=== PATIENT | female | born 1960 | race Caucasian/White ===

== ENCOUNTER 2018-09-22 16:42 | Day surgery (SDC) | payer OTHER ==
[2018-09-20 17:23] VITALS: Ht 172.7 cm; Wt 67.1 kg
[~2018-09-22] VITALS: Ht 172.7 cm; Wt 67.1 kg
[2018-09-22] VITALS (14 sets, daily range): BP systolic 99–118; BP diastolic 58–75; PULSE 74–100; RESP 15–24
[~2018-09-22 16:42] MED LIST: ALPR0.5T PO; ASPI-817 PO; CEFAZOLIN 1 GM INJ ONE; CEFAZOLIN 2 GM/50 ML (PMX) 50 ML IVPB ONE; CITA20TA11 PO; DESFLURANE 15 MIN ONE; GLYCOPYRROLATE 0.4 MG INJ ONE; LACTATED RINGER'S 1,000 ML IV* SCH; LIDOCAINE 2% (SDV) 5 ML INJ ONE; NEOSTIGMINE 10 MG INJ ONE; PROPOFOL 200 MG INJ ONE; ROCURONIUM 50 MG INJ ONE; SUCCINYLCHOLINE CHLORIDE 100 MG/5 ML SYG IV ONE; prempro
[2018-09-22] MEDS ORDERED: VIT D3 PO (17:45)
--- NOTE | 2018-09-22 18:46 | HPN ---
Date/Time of Note Date/Time of Note DATE: 09/22/18 TIME: 18:46 Interval H&P Admission Note Pt. seen H&P reviewed: No system changes YFN SHOEMAKER Sep 22, 2018 18:46
--- NOTE | 2018-09-22 18:54 | PREAC ---
Date/Time of Note Date/Time of Note DATE: 09/22/18 TIME: 18:53 Anesthesia Eval and Record Evaluation Time Pre-Procedure Interview DATE: 09/22/18 TIME: 18:53 Age 58 Sex female NPO: 8 hrs Preoperative diagnosis L hand thumb fracture Planned procedure L thumb arthroplasty Past Medical History Past Medical History: Includes Cardio: Dyslipidemia Surgery & Anesthesia Issues No known issue Meds Anticoagulation: No Beta Elba within 24 hr: No Reason Beta Elba not given: Pt. not on B-Elba Reported Medications [Vit D3] No Conflict Check, 2000 CAP PO DAILY 09/22/18 [prempro] No Conflict Check 09/20/18 Alprazolam* (Xanax*) 0.5 Mg Tab, 0.5 MG PO TID, TAB 09/20/18 Aspirin* (Aspirin* EC) 81 Mg Tablet.dr, 81 MG PO DAILY, TAB 09/20/18 Citalopram Hydrobromide* (Celexa*) 20 Mg Tablet, 20 MG PO DAILY, #30 TAB 09/20/18 Current Medications Lactated Ringer's 1,000 ml @ 0 mls/hr Q0M IV* ; Start 09/22/18 at 07:00 Meds reviewed: Yes Allergies Coded Allergies: No Known Allergy (Unverified , 09/20/18) Allergies Reviewed: Yes Labs/Studies Labs Reviewed: Reviewed by anesthesiologist test: Negative Pre-procedure Exam Last vitals Vital Signs Date Temp Pulse Resp B/P (MAP) Pulse Ox O2 O2 Flow FiO2 Time Delivery Rate 09/22/18 97.5 74 18 112/66 100 Room Air 17:40 (81) Airway: Adequate mouth opening, Adequate thyromental dist Mallampati: Mallampati II Teeth: Normal Lung: Normal Heart: Normal ASA Physical Status ASA physical status: 2 Emergency: None Planned Anesthetic General/MAC: ETT Nerve block: Brachial plexus (left) Pre-operative Attestations Prior to commencing anesthesia and surgery, the patient was re-evaluated, there was verification of: *The patient's identity *The results of appropriate recent lab work and preoperative vital signs *The above evaluation not changing prior to induction *Anesthetic plan, risk benefits, alternative and complications discussed with patient/family; questions answered; patient/family understands, accepts and wishes to proceed. ROE HOPE Sep 22, 2018 18:54
[2018-09-22] MEDS ORDERED: MEPERIDINE 25 MG INJ IV PRN (19:00)
[2018-09-22] MEDS ORDERED: FENTAnyl 50 MCG/ML VIAL IV PRN ×2 (19:00)
[2018-09-22] MEDS ORDERED: HYDROmorphONE 1 MG/5 ML IV SYRINGE IV PRN ×3 (19:00)
[2018-09-22] MEDS ORDERED: DIPHENHYDRAMINE 50 MG INJ IV PRN (19:00)
[2018-09-22] MEDS ORDERED: METOCLOPRAMIDE 10 MG INJ IV PRN (19:00)
[2018-09-22] MEDS ORDERED: ALBUTEROL 0.083% (NEB) 2.5 MG/3 ML AMP HHN PRN (19:00)
[2018-09-22] MEDS ORDERED: ONDANSETRON 4 MG INJ IV PRN (19:00)
[2018-09-22] MEDS ORDERED: MIDAZOLAM 1 MG/ML 2 ML INJ ONE (19:08)
[2018-09-22] MEDS ORDERED: ROPIVACAINE 0.5 % 30 ML VIAL ONE (19:09)
--- NOTE | 2018-09-22 21:24 | OPPN ---
Date/Time of Note Date/Time of Note DATE: 09/22/18 TIME: 21:23 Operative Report Preoperative Diagnosis Left thumb CMC osteoarthritis Left thumb MP joint hyperlaxity Left carpal tunnel syndrome Left hand STT joint osteoarthritis Postoperative Diagnosis Left thumb CMC osteoarthritis Left thumb MP joint hyperlaxity Left carpal tunnel syndrome Left hand STT joint osteoarthritis Operation/Procedure Performed Left thumb CMC arthroplasty Left thumb MP joint fusion Left carpal tunnel release Left hand proximal excision of trapezoid bone Surgeon see signature line market research assistant none Anesthesia: general Estimated blood loss: 0 - 10 ml's Transfusion Required none Specimen none Grafts/Implants none Complications none YFN SHOEMAKER Sep 22, 2018 21:24
--- NOTE | 2018-09-23 01:05 | OPR ---
DATE OF OPERATION: 09/22/2018 SURGEON: Yfn Nathan MD ANESTHESIA: Peripheral nerve block plus general. PREOPERATIVE DIAGNOSES: 1. Left thumb carpometacarpal joint osteoarthritis. 2. Left wrist/hand scaphotrapeziotrapezoid joint osteoarthritis. 3. Left thumb metacarpophalangeal joint hyperlaxity. 4. Left carpal tunnel syndrome. POSTOPERATIVE DIAGNOSES: 1. Left thumb carpometacarpal joint osteoarthritis. 2. Left wrist/hand scaphotrapeziotrapezoid joint osteoarthritis. 3. Left thumb metacarpophalangeal joint hyperlaxity. 4. Left carpal tunnel syndrome. PROCEDURES: 1. Left thumb carpometacarpal joint arthroplasty with excision of trapezium. 2. Left thumb carpometacarpal joint ligament reconstruction with suspension plasty. 3. Excision of the proximal third trapezoid bone at the left wrist/hand. 4. Left thumb metacarpophalangeal joint fusion 5. Left carpal tunnel release, open. OPERATIVE FINDINGS: Left thumb carpometacarpal joint, severe osteoarthritis with severe osteoarthrit is of the ST-T joint and hyperlaxity of the thumb MP joint with swelling in the carpal canal. INDICATIONS FOR PROCEDURE: A 58-year-old female with longstanding left wrist and hand pain and defor mity. She failed conservative management and elected to proceed with surgical intervention, understa nding the risks and benefits. DESCRIPTION OF PROCEDURE: The patient was seen in the preoperative area. All further questions were answered. Again, she gave informed consent understanding the risks and benefits. She was taken to the operative suite and placed in the supine position. The anesthesia team performed a peripheral ne rve block and the patient was placed under general anesthesia. Tourniquet placed in the left upper e xtremity, and left upper extremity was prepped with ChloraPrep stick and draped in the usual sterile fashion. Ancef 2 grams IV given and Esmarch bandage was used to exsanguinate the extremity and tourn iquet inflated to 250 mmHg. Attention was first turned to the carpal tunnel and a 2 cm incision at t he base of the palm was utilized with sharp dissection carried down through skin and subcutaneous tis mya. The palmar aponeurosis was incised along its ulnar border and retractors were deepened. The tr ansverse carpal ligament was divided along its ulnar border approximately 3 mm radial to the hook of the hamate. Retractor was placed proximally and distally, and the proximal distal extent of the ware sverse carpal ligament were divided under direct visualization. Wound was copiously irrigated and sk in closed with 5-0 nylon. Attention was turned to the thumb CMC and a longitudinal dorsal incision o bobby the CMC joint was utilized with sharp dissection carried down through skin and subcutaneous tissu e. The EPL and EPB tendons were retracted and the dorsal joint capsule was incised longitudinally. The trapezium was completely excised and there was significant osteophyte formation. After complete excision of the trapezium, there was adequate space between the scaphoid and the base of the thumb me tacarpal but there was severe osteoarthritis and [id number] arthritis between the scaphoid and the trapezoid. The proximal third of the trapezoid was excised using an osteotome and a rongeur. After that, there was adequate space between the scaphoid and the trapezoid. Attention was then turned to the ligament reconstruction and the largest slip of the abductor pollicis longus tendon was identifie d at the radial aspect of the thumb. The first dorsal compartment was incised along its dorsal borde r and the tendon slip was dissected proximally. A counterincision was made proximally in the forearm and the slip of the abductor pollicis longus was transected at the musculotendinous junction proxima lly. The tendon was brought distally and was brought deep to the FCR tendon and then was sutured to itself as well as to the FCR tendon with gentle traction placed on the thumb. A 3-0 Ethibond suture was used to achieve the ligament reconstruction and suspension plasty. The remaining tendon was put into a ball and was placed into the void left by the trapezium. The wounds were copiously irrigated and skin closed with 5-0 nylon proximally. The joint capsule at the CMC joint was closed with 3-0 Et hibond and skin closed with 5-0 nylon. Attention was then turned to the thumb MP joint fusion and a longitudinal incision over the thumb MP joint was utilized and sharp dissection carried down through skin and subcutaneous tissue. The EPL and EPB tendons were retracted ulnarly and the dorsal joint ca psule was visualized. A longitudinal capsulotomy was made and a debridement of the joint surface was performed with all remaining cartilage and firm subchondral bone debrided down to cancellous bone. The thumb was placed into 30 degrees of flexion at the MP joint and a [employer] hand plate was placed across the MP joint with 30 degrees of flexion. Locking screws were placed proximally and distally. X-ray imaging showed appropriate hardware placement and bony alignment. The wound was copiously irr igated and skin closed with 5-0 nylon. Xeroform was placed to the wound followed by sterile gauze, W ebril, and a short arm thumb spica splint. Tourniquet deflated after 95 minutes and the patient was awakened from anesthesia. She was taken to postoperative suite in stable condition, tolerated the pr ocedure well without complication. SPECIMENS: None. ESTIMATED BLOOD LOSS: 5 mL. COUNTS: Sponge, instrument, needle counts were correct. TOURNIQUET TIME: 95 minutes. CONDITION ON DISCHARGE: Stable. The patient was given a nonrefillable 5-day prescription for pain medication for surgery today. Dictated By: YFN PERALTA/MATIAS Conf#: [id number] DID#: [id number]
--- NOTE | 2018-09-23 13:46 | PAC ---
Date/Time of Note Date/Time of Note DATE: 09/23/18 TIME: 13:45 Post-Anesthesia Notes Post-Anesthesia Note Last documented vital signs Vital Signs Date Temp Pulse Resp B/P (MAP) Pulse Ox O2 O2 Flow FiO2 Time Delivery Rate 09/22/18 88 15 114/71 99 Room Air 22:31 (85) 09/22/18 98.7 6.0 21:31 Activity: WNL Respiratory function: WNL Cardiovascular function: WNL Mental status: Baseline Pain reasonably controlled: Yes Hydration appropriate: Yes Nausea/Vomiting absent: Yes ROE HOPE Sep 23, 2018 13:46
== END 2018-09-22 22:52 | disposition home or self-care (01) ==
LOC: EDSEX 16:42 → SDS 16:42
PROVIDERS: ATTEND Orthopaedic Surgery Hand Surgery
DX: M18.12 Unilateral primary osteoarthritis of first carpometacarpal joint, left hand (principal); M19.032 Primary osteoarthritis, left wrist; G56.02 Carpal tunnel syndrome, left upper limb; E78.5 Hyperlipidemia, unspecified
CPT/HCPCS: 25447; 64721; 73140; J0690; J1170; J2250; J2405; J2710; J2795